=== PATIENT | female | born 1985 | race Caucasian/White ===

== ENCOUNTER 2019-09-08 21:06 | Observation (INO) | payer BC, OTHER ==
[2019-09-08] MEDS ORDERED: Lactated Ringers 1,000 ML IV SCH (21:30)
[2019-09-08] MEDS ORDERED: HYDROmorphone 0.5 MG/0.5 ML Syringe IVPUSH STA (21:30)
[2019-09-08] MEDS ORDERED: Ondansetron 4 MG/2 ML SDV IVPUSH ONE (21:30)
--- NOTE | 2019-09-08 21:37 | EDM.PDOC ---
ED HPI GENERAL MEDICAL PROBLEM - General Chief Complaint: Trauma Stated Complaint: [facility] Time Seen by Provider: 09/08/19 21:06 Source of Information: Reports: Patient, Family (Mother) History Limitations: Reports: No Limitations - History of Present Illness INITIAL COMMENTS - FREE TEXT/NARRATIVE: A trauma alert was called for this patient. Ms. Naqvi is a very pleasant 33-year-old woman with no chronic medical problems, who is now brought to the ED by EMS after being injured when a horse fell on her around 20:15 this evening. The patient states that she was riding the horse when it reared up, then fell backwards. She states that the entire weight of the horse fell onto her, while she was still in the saddle. She had immediate left hip pain, and states that her left foot feels a little numb, although denies any other injuries. She was unable to get up. EMS did not give any medications en route. No prior left hip injury. Here in the ED, the patient is found to be hemodynamically stable, afebrile, saturating 98% on room air. Other than today's injury, the patient denies recent fever, chills, sore throat, ear pain, nasal or sinus congestion, cough, dyspnea, chest pain, palpitations, nausea, vomiting, constipation, diarrhea, abdominal pain, urinary symptoms, recent weight gain or weight loss, recent bloody bowel movements or black bowel movements, recent joint aches, headaches, or rashes. The patient last ate around 18:45. The patient's PCP is Lakeshia Ladd NP. Her Vp Product and Salvage Mechanic are at [facility]. Left Hip Pain Score (Numeric/FACES): 8 - Related Data Allergies Allergy/AdvReac Type Severity Reaction Status Date / Time No Known Allergies Allergy Verified 09/09/19 00:21 Home Meds: Home Meds Control. 1 tab PO DAILY 09/08/19 [History] Vortioxetine Hydrobromide [Trintellix] 20 mg PO DAILY 09/08/19 [History] Past Medical History - Past Surgical History HEENT Surgical History: Reports: Oral Surgery (wisdom teeth extraction) Cardiovascular Surgical History: Reports: Vascular Surgery (left saphenous vein sclerosis) Social & Family History - Tobacco Use Smoking Status *Q: Never Smoker - Alcohol Use Alcohol Use History: Yes Alcohol Use Frequency: Socially - Recreational Drug Use Recreational Drug Use: No - Living Situation & Occupation Living situation: Reports: Single, with Significant Other (Fianc) Occupation: Employed ([employer]) Review of Systems - Review of Systems Review Of Systems: Comprehensive ROS is negative, except as noted in HPI. ED EXAM, GENERAL - Physical Exam Exam: See Below Exam Limited By: No Limitations General Appearance: Alert, WD/WN, Mild Distress (appears uncomfortable) Eye Exam: Bilateral Eye: EOMI, Normal Inspection Ears: Normal External Exam, Hearing Grossly Normal Nose: Normal Inspection Throat/Mouth: Normal Inspection, Normal Lips, Normal Voice, No Airway Compromise Head: Atraumatic, Normocephalic Neck: Normal Inspection, Full Range of Motion Respiratory/Chest: No Respiratory Distress, Lungs Clear, Normal Breath Sounds, No Accessory Muscle Use Cardiovascular: Normal Peripheral Pulses, Regular Rate, Rhythm, No Gallop, No JVD, No Murmur, No Rub Peripheral Pulses: 3+: Radial (L), Radial (R), Femoral (L), Femoral (R), Popliteal (L), Popliteal (R), Posterior Tibial (L), Posterior Tibial (R), Dorsalis Pedis (L), Dorsalis Pedis (R) GI/Abdominal: Normal Bowel Sounds, Soft, Non-Tender, No Organomegaly, No Distention, No Abnormal Bruit, No Mass (Female) Exam: Deferred Rectal (Female) Exam: Deferred Extremities: Normal Capillary Refill, Other (The pelvis is stable to compression and applied pressure. The left foot is externally rotated, however, the patient is able to internally rotate her left foot, and the left lower extremity is not foreshortened, compared to the right. Pain is induced in the left hip with compression, traction, and rotation of the left lower extremity. The patient did not tolerate an attempt to flex the left hip. The patient reports slightly decreased sensation to the left foot, however, there are no visible abnormalities to the left foot, such as swelling, erythema, ecchymosis, or abrasion. Vascular status of the left lower extremity is intact.) Neurological: Alert, Oriented, Normal Cognition, No Motor/Sensory Deficits Psychiatric: Normal Affect Skin Exam: Warm, Dry, Intact, Normal Color, No Rash Course - Vital Signs Last Recorded V/S: Last Vital Signs Temp 36.7 C 09/09/19 00:24 Pulse 93 09/09/19 00:24 Resp 16 09/09/19 00:24 BP 124/70 09/09/19 00:24 Pulse Ox 95 09/09/19 00:24 - Orders/Labs/Meds Orders: Active Orders 24 hr Category Date Time Status Hip Min 2V or 3V w Pelvis Lt [CR] Stat Exams 09/08/19 21:29 Taken Lactated Ringers [Ringers, Lactated] 1,000 ml Med 09/08/19 21:30 Active IV ASDIRECTED Medication Orders Lactated Ringer's (Ringers, Lactated) 1,000 mls @ 100 mls/hr IV ASDIRECTED SHAR Last Admin: 09/08/19 21:43 Dose: 100 mls/hr Documented by: ALEKSANDRA Meds: Medications Generic Name Dose Route Start Last Admin Trade Name Freq PRN Reason Stop Dose Admin Lactated Ringer's 1,000 mls @ 100 mls/hr 09/08/19 21:30 09/08/19 21:43 Ringers, Lactated IV 100 mls/hr ASDIRECTED SHAR Administration Discontinued Medications Generic Name Dose Route Start Last Admin Trade Name Freq PRN Reason Stop Dose Admin Hydromorphone HCl 0.5 mg 09/08/19 21:30 09/08/19 21:43 Dilaudid IVPUSH 09/08/19 21:31 0.5 mg ONETIME STA Administration Hydromorphone HCl 0.5 mg 09/08/19 22:11 09/08/19 22:15 Dilaudid IVPUSH 09/08/19 22:12 0.5 mg ONETIME ONE Administration Ondansetron HCl 4 mg 09/08/19 21:30 09/08/19 21:43 Zofran IVPUSH 09/08/19 21:31 4 mg ONETIME ONE Administration - Re-Assessments/Exams Free Text/Narrative Re-Assessment/Exam: 09/08/19 21:31 As above, a horse that the patient was riding reared up, then fell backwards, landing on her while she was still in the saddle, injuring her left hip. Her examination is concerning for a nondisplaced left hip fracture. I have ordered x-rays of her left hip and pelvis, and in the meantime, the patient will be given IV Dilaudid, IV Zofran, and IV fluid. She will be kept NPO. 09/08/19 22:52 3-view radiographs of the left hip and pelvis appear to be grossly normal, with no fractures or dislocations identified. Formal read per the Radiologist pending. 09/08/19 22:56 X-ray results discussed with the patient and her fianc (now present; her mother is gone). I recommended that we have the patient's nurse assist her, to see if we can get her up. If the patient is simply unable to bear weight, then we will need to consider the possibility of an occult fracture, which would be best evaluated with an MRI, although could be evaluated by a CT scan. 09/08/19 23:06 Notified by Maryellen CASTELLON that the patient had difficulty sitting up, and they did not even attempt to have her stand. This raises the possibility of an occult fracture. It is my understanding that an MRI is superior to a CT scan in the evaluation of an occult fracture, however, that does not mean that it would not be appropriate to perform a CT scan at this particular time. I would like to discuss the case with an Orthopedic Surgeon before irradiating the patient unnecessarily, however, our Orthopedic Surgeon is not distribution driver tonight. The p atalbert was asked if she prefers [facility] versus [facility], and she chose [facility]. I pushed the XRay images to . [facility]. 09/08/19 23:19 Case discussed with Sandra at [facility] at 23:07. Case then discussed with Dr. Salomon, Orthopedic Surgeon distribution driver at [facility], at 23:16. He confirmed that an MRI is far superior to a CT scan at this point. If the patient is able to [id number] with crutches, she can be discharged home and return for an outpatient MRI, otherwise, she should be placed into observation under the Trauma Surgeon with arrangements made for an MRI as an inpatient. 09/08/19 23:[address] Joyner at 23:21. He agreed to place the patient into observation. I will write bridge orders, including an order for an MRI of the left hip for the morning. Departure - Departure Time of Disposition: 23:24 Disposition: Refer to Observation Condition: Good Clinical Impression: Injury of left hip - Discharge Information *PRESCRIPTION DRUG MONITORING PROGRAM REVIEWED*: Not Applicable *COPY OF PRESCRIPTION DRUG MONITORING REPORT IN PATIENT LIS: Not Applicable Sepsis Event Note (ED) - Evaluation Sepsis Screening Result: No Definite Risk - Focused Exam Vital Signs: Vital Signs Temp Pulse Resp BP Pulse Ox 09/08/19 21:13 36.6 C 78 16 113/67 98 - My Orders Last 24 Hours: My Active Orders 09/08/19 21:29 Hip Min 2V or 3V w Pelvis Lt [CR] Stat 09/08/19 21:30 Lactated Ringers [Ringers, Lactated] 1,000 ml IV ASDIRECTED - Assessment/Plan Last 24 Hours: My Active Orders 09/08/19 21:29 Hip Min 2V or 3V w Pelvis Lt [CR] Stat 09/08/19 21:30 Lactated Ringers [Ringers, Lactated] 1,000 ml IV ASDIRECTED
[2019-09-08] MEDS ORDERED: HYDROmorphone 0.5 MG/0.5 ML Syringe IVPUSH ONE (22:11)
[2019-09-09] MEDS ORDERED: Ondansetron 4 MG/2 ML SDV IVPUSH PRN (01:29)
[2019-09-09] MEDS: HYDROmorphone 0.5 MG/0.5 ML Syringe IVPUSH PRN ×2 (02:19→05:53)
--- NOTE | 2019-09-09 07:08 | CR ---
Pelvis and left hip: AP view of the pelvis was obtained as well as AP and crosstable lateral views left hip. Comparison: No prior pelvis or hip study. Joint spaces within both hips are maintained. Sacroiliac joints appear within normal limits. No fracture or other bony abnormality is appreciated. Impression: 1. No abnormality is appreciated on AP pelvis or on 2 view left hip exam. Diagnostic code #1 This report was dictated in MDT
[2019-09-09] MEDS ORDERED: oxyCODONE 5 MG Tab PO PRN (07:38)
[2019-09-09] MEDS ORDERED: Acetaminophen 325 MG Tab PO SCH (08:00)
[2019-09-09] MEDS: Ketorolac 30 MG/ML SDV IVPUSH SCH ×2 (08:45→14:01)
--- NOTE | 2019-09-09 10:59 | CT ---
CT pelvis Technique: Multiple axial sections through the pelvis were obtained. Intravenous contrast was not utilized. Findings: Intramuscular hematoma is noted within the upper left abductor longus muscle. Adjacent subcutaneous contusion within the fat within the upper medial thigh is also noted on the left side. No bony fracture is appreciated. No intra-pelvic abnormalities are seen. Impression: 1. Intramuscular hematoma within the upper left abductor longus muscle. Subcutaneous hematoma within the adjacent fat within the medial upper thigh. 2. No acute bony abnormality is seen. Diagnostic code #3 This report was dictated in MDT
--- NOTE | 2019-09-09 13:44 | PCM.HP.2 ---
H&P History of Present Illness - General Date of Service: 09/09/19 Admit Problem/Dx: blunt trauma, fall from horse Source of Information: Patient History Limitations: Reports: No Limitations - History of Present Illness Other HPI/Comments: Patient is a 33 yo healthy woman who was riding a horse when it reared up and then fell backwards on top of the patient. The patient did not lose consciousness, and reports left hip pain. She was evaluated in the emegency room last night, and plain films of the left hip revealed no orthopedic injury. However, the patient was having serious pain and trouble bearing weight on the LLE, so she was admitted with plan for further workup and treatment. A CT scan of the pelvis without contrast showed no orthopedic injury, but did show some intramuscular and subcutaneous hematoma at the site of injury. Left Hip Pain Score (Numeric/FACES): 4 - Related Data Allergies/Adverse Reactions: Allergies Allergy/AdvReac Type Severity Reaction Status Date / Time No Known Allergies Allergy Verified 09/09/19 00:21 Home Medications: Home Meds Control. 1 tab PO DAILY 09/08/19 [History] Vortioxetine Hydrobromide [Trintellix] 20 mg PO DAILY 09/08/19 [History] oxyCODONE 5 mg PO Q4H PRN #15 tab 09/09/19 [Rx] Past Medical History Gastrointestinal History: Reports: Inflammatory Bowel Disease Other Gastrointestinal History: lactose intolerant Psychiatric History: Reports: Anxiety, Depression Oncologic (Cancer) History: Reports: Other (See Below) Other Oncologic History: melanoma - Infectious Disease History Infectious Disease History: Reports: Chicken Pox - Past Surgical History HEENT Surgical History: Reports: Oral Surgery (wisdom teeth extraction) Cardiovascular Surgical History: Reports: Vascular Surgery (left saphenous vein sclerosis) Social & Family History - Family History Family Medical History: Noncontributory - Tobacco Use Smoking Status *Q: Never Smoker Second Hand Smoke Exposure: No - Caffeine Use Caffeine Use: Reports: None - Recreational Drug Use Recreational Drug Use: No - Living Situation & Occupation Living situation: Reports: Single, with Significant Other (Fianc) Occupation: Employed ([employer]) H&P Review of Systems - Review of Systems: Review Of Systems: See Below General: Reports: No Symptoms HEENT: Reports: Other (cut lip) Pulmonary: Reports: No Symptoms Cardiovascular: Reports: No Symptoms Gastrointestinal: Reports: No Symptoms Genitourinary: Reports: No Symptoms Musculoskeletal: Reports: Leg Pain Skin: Reports: Other (mosquito bites RLE) Psychiatric: Reports: No Symptoms Neurological: Reports: No Symptoms Hematologic/Lymphatic: Reports: No Symptoms Exam - Exam Exam: See Below - Vital Signs Vital Signs: Last Vital Signs Temp 36.5 C 09/09/19 08:20 Pulse 69 09/09/19 08:20 Resp 20 09/09/19 08:20 BP 105/63 09/09/19 08:20 Pulse Ox 96 09/09/19 08:20 Weight: 71.033 kg - Exam General: Alert, Oriented, Cooperative HEENT: Conjunctiva Clear Neck: Supple, Trachea Midline Lungs: Clear to Auscultation, Normal Respiratory Effort Cardiovascular: Regular Rate, Regular Rhythm, Other (low grade systolic murmur) GI/Abdominal Exam: Soft, Non-Tender (Female) Exam: Deferred Rectal (Female) Exam: Deferred Back Exam: Full Range of Motion Extremities: Normal Inspection, No Pedal Edema, Normal Capillary Refill, Other (limited left hip flexion due to pain, worse with abduction and adduction. No crepitus or bony deformity. No ecchymosis or appreciable swelling. ) Skin: Warm, Dry, Intact Neuro Extensive - Mental Status: Alert, Oriented x3, Normal Mood/Affect - Patient Data Lab Results Last 24 hrs: Laboratory Results - last 24 hr 09/09/19 Range/Units 00:03 COVID-19 (ALEXANDRE) Negative (NEGATIVE) Sepsis Event Note - Evaluation Sepsis Screening Result: No Definite Risk - Focused Exam Vital Signs: Vital Signs Temp Pulse Resp BP Pulse Ox 09/09/19 08:20 36.5 C 69 20 105/63 96 09/09/19 05:40 84 16 110/80 97 Date Exam was Performed: 09/09/19 Time Exam was Performed: 13:39 *Q Meaningful Use (ADM) - VTE Risk Assess *Q Each Risk Factor Represents 1 Point: None Total Score 1 Point Risk Factors: 0 Problem List Initiated/Reviewed/Updated: Yes Orders Last 24hrs: Active Orders 24 hr Category Date Time Status Patient Status [ADT] Routine ADT 09/08/19 23:39 Active Bedrest Bedside Commode [RC] ASDIRECTED Care 09/09/19 01:26 Active Ready for Discharge [RC] PER UNIT ROUTINE Care 09/09/19 13:39 Ordered Consult to Occupational Therapy [OT Evaluation and Cons 09/09/19 07:39 Active Treatment] [CONS] Routine Consult to Physical Therapy [PT Evaluation and Cons 09/09/19 07:39 Active Treatment] [CONS] Routine Regular Diet [DIET] Diet 09/09/19 Breakfast Active Acetaminophen [Tylenol] Med 09/09/19 08:00 Active 975 mg PO Q8H Ketorolac [Toradol] Med 09/09/19 08:00 Active 30 mg IVPUSH Q6H Ondansetron [Zofran] Med 09/09/19 01:29 Active 4 mg IVPUSH Q6H PRN oxyCODONE Med 09/09/19 07:38 Active 5 mg PO Q4H PRN Resuscitation Status Routine Resus Stat 09/09/19 01:26 Ordered Medication Orders Acetaminophen (Tylenol) 975 mg PO Q8H REPLACED BY [facility] Last Admin: 09/09/19 08:43 Dose: 975 mg Documented by: BRAYDEN Ketorolac Tromethamine (Toradol) 30 mg IVPUSH Q6H REPLACED BY [facility] Last Admin: 09/09/19 08:45 Dose: 30 mg Documented by: BRAYDEN Ondansetron HCl (Zofran) 4 mg IVPUSH Q6H PRN PRN Reason: Nausea/Vomiting Oxycodone HCl (Oxycodone) 5 mg PO Q4H PRN PRN Reason: Pain (moderate 4-6) Assessment/Plan Comment:: Blunt trauma with some associated soft tissue injury/hematoma at the proximal LLE. PT/OT evaluated patient. Plan for discharge to home with crutches and shower seat. Follow up with PCP. - Mortality Measure Prognosis:: Good
--- NOTE | 2019-09-15 08:43 | PCM.DCSUM1 ---
Discharge Summary - Hospital Course Free Text/Narrative:: Admitted after falling off a horse with injury to left thigh- CT scan shows no evidence of orthopedic injury, but intramuscular and subcutaneous hematoma. WOrked with PT/OT and cleared for discharge the day after admission. - Discharge Data Discharge Date: 09/09/19 Discharge Disposition: Home, Self-Care 01 Condition: Good - Referral to Home Health Primary Care Physician: Lakeshia Ladd NP - Patient Summary/Data Consults: Consultations 09/09/19 07:39 Consult to Occupational Therapy [OT Evaluation and Treatment] [CONS] Routine Consult to Physical Therapy [PT Evaluation and Treatment] [CONS] Routine - Discharge Plan *PRESCRIPTION DRUG MONITORING PROGRAM REVIEWED*: Not Applicable *COPY OF PRESCRIPTION DRUG MONITORING REPORT IN PATIENT LIS: Not Applicable Prescriptions/Med Rec: oxyCODONE 5 mg PO Q4H PRN #15 tab PRN Reason: Pain Home Medications: Home Meds Control. 1 tab PO DAILY 09/08/19 [History] Vortioxetine Hydrobromide [Trintellix] 20 mg PO DAILY 09/08/19 [History] oxyCODONE 5 mg PO Q4H PRN #15 tab 09/09/19 [Rx] Patient Handouts: Hip Pain, Oxycodone tablets or capsules Referrals: Lakeshia Ladd CALCULATION CLERK [Primary Care Provider] - 09/16/19 10:30 am (Please follow up with Lakeshia Ladd NP on September 15 at 10:30.) - Discharge Summary/Plan Comment DC Time >30 min.: No - Patient Data Vitals - Most Recent: Last Vital Signs Temp 36.9 C 09/09/19 13:49 Pulse 65 09/09/19 13:49 Resp 20 09/09/19 13:49 BP 111/69 09/09/19 13:49 Pulse Ox 97 09/09/19 13:49 Weight - Most Recent: 71.033 kg Med Orders - Current: Current Medications Discontinued Medications Acetaminophen (Tylenol) 975 mg PO Q8H [facility]AR Last Admin: 09/09/19 08:43 Dose: 975 mg Documented by: Hydromorphone HCl (Dilaudid) 0.5 mg IVPUSH ONETIME STA Stop: 09/08/19 21:31 Last Admin: 09/08/19 21:43 Dose: 0.5 mg Documented by: Hydromorphone HCl (Dilaudid) 0.5 mg IVPUSH ONETIME ONE Stop: 09/08/19 22:12 Last Admin: 09/08/19 22:15 Dose: 0.5 mg Documented by: Hydromorphone HCl (Dilaudid) 0.5 mg IVPUSH Q2H PRN PRN Reason: Pain Last Admin: 09/09/19 05:53 Dose: 0.5 mg Documented by: Lactated Ringer's (Ringers, Lactated) 1,000 mls @ 100 mls/hr IV ASDIRECTED [facility] Last Admin: 09/08/19 21:43 Dose: 100 mls/hr Documented by: Ketorolac Tromethamine (Toradol) 30 mg IVPUSH Q6H [facility] Last Admin: 09/09/19 14:01 Dose: 30 mg Documented by: Ondansetron HCl (Zofran) 4 mg IVPUSH ONETIME ONE Stop: 09/08/19 21:31 Last Admin: 09/08/19 21:43 Dose: 4 mg Documented by: Ondansetron HCl (Zofran) 4 mg IVPUSH Q6H PRN PRN Reason: Nausea/Vomiting Oxycodone HCl (Oxycodone) 5 mg PO Q4H PRN PRN Reason: Pain (moderate 4-6)
== END 2019-09-09 15:15 | disposition home or self-care (01) ==
LOC: JD.ED 21:06 → JD.MS 23:39 → JD.OB 09-09 09:07 → JD.MS 09-09 09:13
PROVIDERS: ADMIT Surgery; ATTEND Surgery
DX: S80.12XA Contusion of left lower leg, initial encounter (principal); F41.9 Anxiety disorder, unspecified; F32.9 Major depressive disorder, single episode, unspecified; V80.010A Animal-rider injured by fall from or being thrown from horse in noncollision accident, initial encounter; Y93.52 Activity, horseback riding; Z11.59 Encounter for screening for other viral diseases
CPT/HCPCS: 72192; 73502; 87635; 96361; 96374; 96375; 96376; 97110; 97116; 97161; 97165; 97530; 99284; A9270; G0378; J1170; J1885; J2405; J7120; U0002

== ENCOUNTER 2020-11-15 11:11 | Emergency (ER) | payer OTHER, BC ==
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
--- NOTE | 2020-11-15 12:32 | CT ---
CT cervical spine Technique: Multiple axial sections through the cervical spine were obtained. Reconstructed coronal and sagittal images were obtained. Comparison: No prior cervical spine imaging is available. Findings: Vertebral body heights and disc spaces are maintained. Visualized lung apices are clear. No bony central or bony neural foraminal stenosis is seen. No fracture is seen. No abnormal subluxation is seen. Impression: 1. Nothing acute is appreciated on CT study of the cervical spine. Diagnostic code #1
[2020-11-15] MEDS ORDERED: Lidocaine 1% 10 ML MDV INJECT ONE (12:36)
--- NOTE | 2020-11-15 12:37 | CR ---
Right hand: 2 views of the right hand were obtained. Comparison: No prior hand study is available. Joint spaces are preserved within the right hand. No acute fracture, dislocation or other bony abnormality is appreciated. Impression: 1. Nothing acute is appreciated on 2 view right hand exam. Diagnostic code #1
--- NOTE | 2020-11-15 13:16 | CR ---
Left clavicle: 2 views of the left clavicle were obtained. Comparison: No prior clavicle study is available. No fracture or other bony abnormality is appreciated. Impression: 1. Nothing acute is seen on 2 view left clavicle study. Diagnostic code #1
== END 2020-11-15 14:20 | disposition home or self-care (01) ==
LOC: JD.ED 11:11
DX: S61.312A Laceration without foreign body of right middle finger with damage to nail, initial encounter (principal); S13.4XXA Sprain of ligaments of cervical spine, initial encounter; S00.11XA Contusion of right eyelid and periocular area, initial encounter; V49.49XA Driver injured in collision with other motor vehicles in traffic accident, initial encounter; Y92.410 Unspecified street and highway as the place of occurrence of the external cause
CPT/HCPCS: 12001; 72125; 72125-26; 73000-26-LT; 73000-LT; 73120-26-RT; 73120-RT; 99284; 99284-25